=== PATIENT | female | born 1985 ===

== ENCOUNTER 2016-08-10 16:40 | Emergency (ER) | payer OTHER ==
[2016-08-10 16:48] VITALS: O2SAT 100
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
[2016-08-10 18:39] VITALS: BP 121/79; PULSE 62; RESP 17; TEMP 98.6
== END 2016-08-10 18:38 | disposition home or self-care (01) ==
LOC: C.ER 16:40
DX: M54.5 Low back pain (principal); F41.9 Anxiety disorder, unspecified; Y92.410 Unspecified street and highway as the place of occurrence of the external cause; V43.62XA Car passenger injured in collision with other type car in traffic accident, initial encounter; G89.29 Other chronic pain